=== PATIENT | female | born 1985 | race Caucasian/White ===

== ENCOUNTER 2017-08-18 07:05 | Inpatient (IN) | payer OTHER ==
[~2017-08-18] VITALS: Ht 165.1 cm; Wt 86.6 kg
[2017-08-18 07:23] VITALS: BP 117/81
[2017-08-18] MEDS ORDERED: RINGERS SOLUTION,LACTATED 1,000 ML IV PRN (07:34)
[2017-08-18] MEDS ORDERED: RINGERS SOLUTION,LACTATED 1,000 ML IV SCH (07:34)
[2017-08-18] MEDS ORDERED: FentaNYL CITRATE-PF 100 MCG/2 ML VIAL IVP PRN (07:45)
[2017-08-18] MEDS ORDERED: METOCLOPRAMIDE HCL 5 MG/ML 2 ML VIAL IVP PRN (07:45)
[2017-08-18] MEDS ORDERED: CITRIC ACID/SODIUM CITRATE 30 ML SOLUTION UDCUP PO PRN (07:45)
[2017-08-18] MEDS ORDERED: OXYGEN THERAPY IH SCH (08:00)
[2017-08-18] MEDS ORDERED: PREN1TAB80 PO (08:10)
[2017-08-18] MEDS ORDERED: OXYTOCIN 30 UNITS/LACT RINGERS 500 ML IV ONE (08:20)
[2017-08-18] MEDS ORDERED: METHYLERGONOVINE MALEATE 0.2 MG/ML VIAL IM PRN (08:30)
[2017-08-18] MEDS ORDERED: LIDOCAINE HCL/PF 1% 30 ML VIAL INJ PRN (08:30)
[2017-08-18 08:31] LABS: BASOPHILS % (AUTO) 0.4 % (0.0-2.0); EOSINOPHILS % (AUTO) 0.3 % (1.0-6.0); HEMOGLOBIN 13.4 g/dL (12.0-16.0); LYMPHOCYTES # (AUTO) 1.9 K/uL (1.0-4.8); MEAN CORPUSCULAR HEMOGLOBIN 31.6 pg (26.0-34.0); MEAN CORPUSCULAR HGB CONC 35.3 G/dL (31.0-37.0); MEAN CORPUSCULAR VOLUME 90 fL (80-100); MONOCYTES # (AUTO) 0.4 K/uL (0.1-1.0); MONOCYTES % (AUTO) 4.5 % (2.0-9.0); NEUTROPHILS # (AUTO) 7.1 K/uL (1.8-7.7); NEUTROPHILS % (AUTO) 74.8 % (40.0-70.0); PLATELET COUNT (AUTO) 251 K/uL (150-450); RED BLOOD CELL COUNT(AUTO) 4.25 MIL/uL (4.00-5.20); RED CELL DISTRIBUTION WIDTH 13.3 % (11.5-14.5)
[2017-08-18] MEDS ORDERED: AMPICILLIN SODIUM 2 GM/NS 100 ML IV ONE (09:30)
[2017-08-18] MEDS ORDERED: ROPIVACAINE HCL/PF 0.2% 100 ML ED ONE (12:48)
[2017-08-18] MEDS ORDERED: LIDOCAINE HCL/PF 2% 5 ML VIAL ONE (12:48)
[2017-08-18] MEDS ORDERED: AMPICILLIN SODIUM 1 GM/NS 50 ML IV SCH (13:30)
[2017-08-18] MEDS ORDERED: OXYTOCIN 30 UNITS/LACT RINGERS 500 ML IV PRN (14:30)
[2017-08-18] MEDS ORDERED: OXYTOCIN 20 UNITS/LACT RINGERS 1,000 ML IV SCH (16:48)
[2017-08-18] MEDS ORDERED: MEASLES/MUMPS/RUBELLA VACCINE, LIVE 0.5 ML/VIAL SQ ONE (17:00)
[2017-08-18] MEDS ORDERED: GLYCERIN/WITCH HAZEL LEAF 40 PADS JAR TP PRN (17:00)
[2017-08-18] MEDS ORDERED: LANOLIN 7 GM OINTMENT TP PRN (17:00)
[2017-08-18] MEDS ORDERED: BENZOCAINE 20%/MENTHOL 56 GM SPRAY CANISTER TP PRN (17:00)
[2017-08-18] MEDS ORDERED: ACETAMINOPHEN/CODEINE 300-30 MG TABLET PO PRN (17:00)
[2017-08-18] MEDS: IBUPROFEN 600 MG TABLET PO PRN (18:22)
[2017-08-18] MEDS: MAGNESIUM HYDROXIDE SUSPENSION 30 ML UDCUP PO PRN (20:56)
[2017-08-18] MEDS: SENNA/DOCUSATE SODIUM 187-50 MG TABLET PO PRN (20:57)
[2017-08-19 05:40] LABS: BASOPHILS % (AUTO) 0.4 % (0.0-2.0); EOSINOPHILS % (AUTO) 0.5 % (1.0-6.0); HEMATOCRIT 37.4 % (36-46); HEMOGLOBIN 13.1 g/dL (12.0-16.0); LYMPHOCYTES # (AUTO) 3.3 K/uL (1.0-4.8); LYMPHOCYTES % (AUTO) 23.6 % (22.0-44.0); MEAN CORPUSCULAR HEMOGLOBIN 31.5 pg (26.0-34.0); MEAN CORPUSCULAR HGB CONC 34.9 G/dL (31.0-37.0); MEAN CORPUSCULAR VOLUME 90 fL (80-100); MONOCYTES # (AUTO) 0.7 K/uL (0.1-1.0); NEUTROPHILS # (AUTO) 9.8 K/uL (1.8-7.7); NEUTROPHILS % (AUTO) 70.5 % (40.0-70.0); PLATELET COUNT (AUTO)-OB 224 K/uL (150-450); RED BLOOD CELL COUNT(AUTO) 4.15 MIL/uL (4.00-5.20); RED CELL DISTRIBUTION WIDTH 13.3 % (11.5-14.5)
[2017-08-19] MEDS: IBUPROFEN 600 MG TABLET PO PRN ×2 (07:25→12:49)
[2017-08-19] MEDS: MAGNESIUM HYDROXIDE SUSPENSION 30 ML UDCUP PO PRN (08:49)
[2017-08-19] MEDS: SENNA/DOCUSATE SODIUM 187-50 MG TABLET PO PRN (12:50)
[2017-08-19] MEDS ORDERED: IBUP-2070 PO (17:01)
[2017-08-19] MEDS ORDERED: DSS100 PO (17:02)
== END 2017-08-19 18:25 | disposition home or self-care (01) | DRG 775 ==
LOC: 4S 07:05 → OBSVTOIN 07:05
PROVIDERS: ADMIT Obstetrics & Gynecology; ATTEND Obstetrics & Gynecology
PROC: 10E0XZZ Delivery of Products of Conception, External Approach (ICD-10-PCS; principal; 2017-08-18)
PROC: 3E0R3BZ Introduction of Anesthetic Agent into Spinal Canal, Percutaneous Approach (ICD-10-PCS; 2017-08-18)
PROC: 00HU33Z Insertion of Infusion Device into Spinal Canal, Percutaneous Approach (ICD-10-PCS; 2017-08-18)
DX: O60.23X0 Term delivery with preterm labor, third trimester, not applicable or unspecified (principal); Z37.0 Single live birth; Z3A.36 36 weeks gestation of pregnancy
CPT/HCPCS: J0290; J2590; J2795; J3490; J7120